=== PATIENT | male | born 1995 | race Two or more races ===

== ENCOUNTER 2016-12-10 02:38 | Emergency (ER) | payer OTHER ==
[2016-12-10] MEDS ORDERED: BUPIVACAINE HCL 0.5 % INJ/PF 30 ML SDV INJ ONE (04:07)
[2016-12-10] MEDS ORDERED: LIDOCAINE 1% INJ (10 MG/ML) 10 ML MDV INJ ONE (04:07)
--- NOTE | 2016-12-10 04:12 | ER Document Report ---
ED Hand/Wrist Injury - General Chief Complaint: Finger Injury Stated Complaint: FINGER INJURY Time seen by provider: 04:10 Notes: Patient is a 21-year-old male that comes emergency department for chief complaint of dislocation/fracture of his left fifth digit. He states he was running down the stairs to get hot wings when he accidentally caught the finger on the metal railing forcing it to the side. He denies any other injuries. He is up-to-date on his vaccinations. He is [employer] duty [employer]. TRAVEL OUTSIDE OF THE [place] IN LAST 30 DAYS: No - Related Data Allergies/Adverse Reactions: No Known Allergies Allergy (Verified 12/10/16 03:40) Home Medications: Current Home Medications No Home Medications 12/10/16 [History] Past Medical History - General Information source: Patient - Social History Smoking Status: Never Smoker Frequency of alcohol use: Occasional Drug Abuse: None Lives with: Alone Family History: Reviewed & Not Pertinent Patient has suicidal ideation: No Patient has homicidal ideation: No Renal/ Medical History: Denies: Hx Peritoneal Dialysis Surgical Hx: Negative - Immunizations Immunizations up to date: Yes Hx Diphtheria, Pertussis, Tetanus Vaccination: Yes Review of Systems - Review of Systems Constitutional: No symptoms reported EENT: No symptoms reported Cardiovascular: No symptoms reported Respiratory: No symptoms reported Gastrointestinal: No symptoms reported Genitourinary: No symptoms reported Male Genitourinary: No symptoms reported Musculoskeletal: See HPI Skin: See HPI Hematologic/Lymphatic: No symptoms reported Neurological/Psychological: No symptoms reported Physical Exam - Vital signs Vitals: Temp Pulse Resp BP Pulse Ox 98.3 F 53 L 18 131/71 H 100 12/10/16 03:05 12/10/16 03:05 12/10/16 03:05 12/10/16 03:05 12/10/16 03:05 Interpretation: Normal - General General appearance: Appears well, Alert In distress: None - Patient actually calm and relaxed - HEENT Head: Normocephalic, Atraumatic Eyes: Normal Pupils: PERRL - Respiratory Respiratory status: No respiratory distress Chest status: Nontender Breath sounds: Normal Chest palpation: Normal - Cardiovascular Rhythm: Regular Heart sounds: Normal auscultation Murmur: No - Abdominal Inspection: Normal Distension: No distension Bowel sounds: Normal Tenderness: Nontender Organomegaly: No organomegaly - Back Back: Normal, Nontender - Extremities General upper extremity: Other - Left fifth digit with distraction dislocation laterally at the PIP joint, sensation and cap refill are actually some intact, no other abnormalities noted General lower extremity: Normal inspection, Nontender, Normal color, Normal ROM , Normal temperature, Normal weight bearing. No: Tavares's sign - Neurological Neuro grossly intact: Yes Cognition: Normal Orientation: AAOx4 [place] Coma Scale Eye Opening: Spontaneous [place] Coma Scale Verbal: Oriented [place] Coma Scale Motor: Obeys Commands [place] Coma Scale Total: 15 Speech: Normal Motor strength normal: LUE, RUE, LLE, RLE Sensory: Normal - Psychological Associated symptoms: Normal affect, Normal mood - Skin Skin Temperature: Warm Skin Moisture: Dry Skin Color: Normal Course - Re-evaluation Re-evalutation: X-ray showing dislocation with no fracture. After reduction, repeat x-ray was performed, I believe patient hyperextended his finger for the image, on my exam he has regained full range of motion and function of the finger. Immobilization with finger splint and sanket taping, refer to orthopedics, discussed return precautions, patient states satisfaction and agreement. - Vital Signs Vital signs: Temp Pulse Resp BP Pulse Ox 98.3 F 61 18 127/76 H 100 12/10/16 03:05 12/10/16 05:37 12/10/16 05:37 12/10/16 05:37 12/10/16 05:37 Procedures - Joint Reduction/Fracture Care left fifth digit at PIP joint Consent obtained: No Conscious sedation: No Pre-procedure NV exam: Yes - normal with no abnormalities Fracture: Other - No fracture, only dislocation Manipulation comment: hyperextended and then realigned into normal anatomical position Post-procedure NV exam: Yes - normal Post-reduction x-ray: Joint reduced, No fracture seen Reduction attempts: 1 Complications: No Notes: Digital block performed using 1% lidocaine and 0.5% bupivacaine. Excellent anesthesia results obtained. Easily distracted and then realigned the joint, repeat x-ray confirmed no fracture. On reexamination patient of course has decreased sensation from the block but has normal capillary refill, has normal range of motion. Immobilized for support with finger splint and sanket taping. Discharge - Discharge Clinical Impression: Finger dislocation Qualifiers: Encounter type: initial encounter Qualified Code(s): S63.259A - Unspecified dislocation of unspecified finger, initial encounter Condition: Stable Disposition: HOME, SELF-CARE Additional Instructions: The finger was dislocated, no fracture is seen. Wear the splint, [place] with [place]oped[place] for a recheck and additional management. Return the emergency department for any concerning symptoms including swelling, redness, severe pain, or any other concerning symptoms. Referrals: SCOTT CROCKER DO [ACTIVE STAFF] - 12/12/16
[2016-12-10] MEDS ORDERED: LIDOCAINE 1% INJ-PF (10 MG/ML) 30 ML SDV ONE (04:24)
[2016-12-10 05:39] VITALS: BP 127/76
== END 2016-12-10 05:37 | disposition home or self-care (01) ==
LOC: ER 02:38
PROC: 0RSXXZZ Reposition Left Finger Phalangeal Joint, External Approach (ICD-10-PCS; principal; 2016-12-10)
DX: S63.287A Dislocation of proximal interphalangeal joint of left little finger, initial encounter (principal); X50.0XXA Overexertion from strenuous movement or load, initial encounter; Y93.89 Activity, other specified
CPT/HCPCS: 99283